=== PATIENT | female | born 1965 | race Caucasian/White ===

== ENCOUNTER → 2017-01-28 | Outpatient (CLI) | payer BC ==
--- NOTE | 2017-01-28 14:57 | REPMRS ---
Patient History The patient states she had a clinical breast exam in Patient is postmenopausal and had first child at age 39. No known family history of cancer. Taking unspecified hormones for 7 years. Digital Woman Screen Mammo: January 28, 2017 - Exam #: [id number] Bilateral CC and MLO view(s) were taken. Technologist: Amira Jenkins, Technologist Prior study comparison: January 23, 2016, digital woman screen mammo performed at [facility]. January 17, 2015, digital woman screen mammo performed at [facility]. January 14, 2014, digital woman screen mammo performed at [facility] to [facility]. FINDINGS: There are scattered fibroglandular densities. There has been no change in the appearance of the mammogram from the prior studies. There is a mild amount of scattered fibroglandular density which is fairly symmetric. There is no interval development of dominant mass, architectural distortion, or clustered microcalcification suggestive of malignancy. ASSESSMENT: BI-RADS/ACR category 1 mammogram. Negative. Recommendation Routine screening mammogram in 1 year (for women over age 40). This mammogram was interpreted with the aid of an FDA-approved computer-aided dectection system. Electronically Signed By: Josiah Akhtar MD 01/28/17 [id number]
== END ==
LOC: M WHC 14:03
PROVIDERS: ATTEND Nurse Practitioner Family
DX: Z12.31 Encounter for screening mammogram for malignant neoplasm of breast (principal)

== ENCOUNTER → 2017-11-28 | Outpatient (CLI) | payer BC | LOC: M WUC 09:21 | DX: R30.0 Dysuria (principal); M75.51 Bursitis of right shoulder | CPT/HCPCS: 87186 ==

== ENCOUNTER → 2018-02-03 | Outpatient (CLI) | payer OTHER | LOC: M WHC 14:17 | DX: Z12.31 Encounter for screening mammogram for malignant neoplasm of breast (principal); Z78.0 Asymptomatic menopausal state | CPT/HCPCS: 77067 ==

== ENCOUNTER → 2019-02-09 | Outpatient (CLI) | payer OTHER ==
--- NOTE | 2019-02-09 17:20 | REPMRS ---
Patient History The patient states she had a clinical breast exam in 02/17 Patient is postmenopausal and had first child at age 39. No known family history of cancer. Taking unspecified hormones for 8 years. Digital Woman Screen Mammo: February 09, 2019 - Exam #: [id number] Bilateral CC and MLO view(s) were taken. Technologist: Frances Bennett, Technologist Prior study comparison: February 03, 2018, digital woman screen mammo performed at [facility]. January 28, 2017, digital woman screen mammo performed at [facility]. FINDINGS: There are scattered fibroglandular densities. There has been no change in the appearance of the mammogram from the prior studies. There is a mild amount of residual fibroglandular tissue which is fairly symmetric. There is no interval development of dominant mass, architectural distortion, or clustered microcalcification suggestive of malignancy. Scattered lymph nodes are seen in the axillae. There are scattered, small, benign calcifications of doubtful clinical significance. 3-D tomosynthesis shows no additional findings. No significant changes when compared with prior studies. Assessment: BI-RADS/ACR category 2 mammogram. Benign Findings. Recommendation Routine screening mammogram in 1 year (for women over age 40). This mammogram was interpreted with the aid of an FDA-approved computer-aided dectection system. A. Negative x-ray reports should not delay biopsy if a dominant or clinically suspicious mass is present. B. Four to eight percent of cancers are not identified by mammography. C. Adenosis and dense breast may obscure an underlying neoplasm. Electronically Signed By: Jamar Gandhi MD 02/09/19 0481
== END ==
LOC: M WHC 13:16
PROVIDERS: ATTEND Nurse Practitioner Family
DX: Z12.31 Encounter for screening mammogram for malignant neoplasm of breast (principal)

== ENCOUNTER → 2019-09-21 | Outpatient (REF) | LOC: M LAB LCGH 15:11 | PROVIDERS: ATTEND Physician Assistant | DX: D48.5 Neoplasm of uncertain behavior of skin (principal) ==

== ENCOUNTER → 2020-08-29 | Outpatient (CLI) | payer OTHER ==
--- NOTE | 2020-09-07 09:06 | REP ---
BILATERAL SCREENING MAMMOGRAM WITH 3D TOMOSYNTHESIS DATE: 08/29/2020 HISTORY: There is no family history of breast cancer. [facility] lifetime risk of breast cancer 11.0. COMPARISON: Mammogram 02/09/2019, as well as other prior examinations. TECHNIQUE: Bilateral mammography performed in the MLO and CC projections with 3D tomosynthesis. FINDINGS: Mild scattered fibroglandular tissue is scattered bilaterally in a fairly symmetrical pattern. Volpara breast density is B. Subtle oval nodule in the left breast centrally behind the nipple in the mid-third of the breast is best seen on tomographic images. This measures about 13 mm in maximum diameter. It is fairly well-defined and low in density. No other mass is seen bilaterally. There are no suspicious clusters of microcalcifications. IMPRESSION: ACR 0 incomplete. There appears to be an oval, well-defined low-density nodule centrally in the left breast behind the nipple, in the mid-third of the breast. Recommend spot compression views and ultrasound to further evaluate. This mammogram was interpreted with the aid of an FDA-approved computer-aided detection system. The patient states her last clinical breast exam was 08/2020. Patient letter: 0. MTDD
== END ==
LOC: M WHC 10:13
PROVIDERS: ATTEND Nurse Practitioner Family
DX: R92.2 Inconclusive mammogram (principal); N63.20 Unspecified lump in the left breast, unspecified quadrant

== ENCOUNTER → 2020-09-01 | Outpatient (CLI) | payer OTHER ==
--- NOTE | 2020-09-07 09:06 | REP ---
DIAGNOSTIC MAMMOGRAM LEFT BREAST WITH LEFT BREAST ULTRASOUND COMPARISON: Mammogram 08/29/2020. Spot compression views of the left breast are performed and correlated with the recent mammogram of 08/29/2020. These confirm the presence of an oval relatively well defined nodule measuring 1.3 cm in diameter, approximately 5 cm behind the nipple centrally. The nodule is essentially at the level of the nipple. Real-time sonographic evaluation of the left breast performed in the region of the nodule, 5 cm behind the nipple. No cystic or solid nodule is seen sonographically. IMPRESSION: ACR 4 suspicious. Oval nodule 13 mm in diameter is relatively well-defined on initial tomographic images 08/29/2020 and on todays spot compression views. It is relatively low in density, but is new when compared to prior studies. There is no sonographic correlate and therefore, the nodule must be presumed to be solid. Recommend stereotactic biopsy with postprocedure mammogram. Patient letter: 4. OSCAR
== END ==
LOC: M WHC 09:16
PROVIDERS: ATTEND Nurse Practitioner Family
DX: Z12.31 Encounter for screening mammogram for malignant neoplasm of breast (principal)

== ENCOUNTER → 2020-10-18 | Outpatient (CLI) | payer OTHER ==
--- NOTE | 2020-10-18 12:26 | REP ---
INDICATION: R92.8 ABNORMAL MAMMOGRAM LT BREAST,STEREOTACTIC BX,POST BX. COMPARISON: 08/29/2020 and 09/01/2020. TECHNIQUE: Left breast mammographic images performed in the MLO, mL and CC projections. FINDINGS: A biopsy clip is seen at the site of the previously identified low-density in nodule in the left breast centrally. The clip is in good position. IMPRESSION: Biopsy clip identified at the site of the previously identified nodule centrally in the left breast. This has been biopsied stereotactically. Small amount of post biopsy hematoma is present. RECOMMENDATION: Clinical follow-up. <Electronically signed by Shin Staley > 10/18/20 [id number]
[2020-10-18 12:40] VITALS: BP 112/82
--- NOTE | 2020-10-18 18:04 | REP ---
INDICATION: R92.8 ABNORMAL MAMMOGRAM LT BREAST,STEREOTACTIC BX. COMPARISON: None. TECHNIQUE: This procedure is performed by Sabrina Victoria [facility], under the direct supervision of Dr. Staley. The risks and benefits of the procedure were explained to the patient and informed consent was obtained both verbally and written. Directly prior to the start of the procedure, a formal timeout was done in the procedure room. The cranial caudal approach was utilized on the prone table. The left breast nodule was localized using mammographic guidance. The skin was prepped and draped in a sterile fashion. Six ml of buffered lidocaine 1% lidocaine 10 mg/ml was used as a local anesthetic. FINDINGS: A 10 gauge suction assisted mammotome needle was inserted and advanced into the left breast nodule and 6 core biopsy samples were obtained. A marker clip was placed at the biopsy site. The patient tolerated the procedure well and there were no immediate complications. After the appropriate amount of monitored convalescence the patient was discharged from the department. IMPRESSION: Stereotactic biopsy of the left breast with a micro clip placement. <Electronically signed by Sabrina Victoria > 10/18/20 1204 <Electronically signed by Shin Staley > 10/18/20 1800
== END ==
LOC: M WHCPRO 09:10
PROVIDERS: ATTEND Surgery
DX: N60.82 Other benign mammary dysplasias of left breast (principal)

== ENCOUNTER → 2021-04-14 | Outpatient (CLI) | payer OTHER ==
--- NOTE | 2021-04-17 10:12 | REP ---
INDICATION: R92.8 ABN LEFT BREAST MAMMO/S/P BENIGN BX; DIAG L MAMMO/S/P LEFT BREAST BENIGN BX. COMPARISON: Comparison is made with post clip placement mammography from October 18, 2020, and prior mammography from August 29, 2020. Patient is status post benign stereotactic needle biopsy and clip placement. TECHNIQUE: Routine views of the left breast are obtained. 3D tomography is carried out. Magnified focal spot-compression images of the left breast are obtained. Targeted left breast sonography is performed. This mammogram was interpreted with the aid of an FDA-approved computer-aided detection system. FINDINGS: Breast parenchyma is predominantly fat replaced. A needle biopsy marker clip is again noted in the 12 o'clock position left breast. The hematoma noted on 10/18/2020 has decreased. No new mass, architectural distortion, microcalcification or worrisome skin changes seen. 3D tomography shows no additional abnormality. The Volpara volumetric breast density pattern is a. Targeted ultrasound: Targeted left breast sonographic imaging shows fairly homogeneous background echotexture. The recently placed needle biopsy marker clip is noted in the 1 o'clock position. No suspicious sonographic findings. IMPRESSION: BIRADS/ACR category 2 benign left breast mammographic and sonographic findings. This patient's Tyrer-Cuzick lifetime breast cancer risk assessment score is 11.0%. RECOMMENDATION: Annual bilateral screening mammography can be resumed.. The patient letter being requested is M2. <Electronically signed by Josiah Akhtar > 04/17/21 [id number]
== END ==
LOC: M WHC 15:22
PROVIDERS: ATTEND Surgery
DX: R92.8 Other abnormal and inconclusive findings on diagnostic imaging of breast (principal)
CPT/HCPCS: 76642; 77065; G0279

== ENCOUNTER → 2021-09-29 | Outpatient (CLI) | payer OTHER ==
--- NOTE | 2021-09-29 14:45 | REPMRS ---
Patient History The patient states she had a clinical breast exam in September 2021. No known family history of cancer. Benign stereotatic loc for ea lesion. of the left breast, October 18, 2020. Taking unspecified hormones for 8 years. Patient states no breast complaints today. Patient has signed MRS History Sheet. Digital Woman Screen Mammo: September 29, 2021 - Exam #: [id number] Bilateral CC and MLO view(s) were taken. Technologist: Shagufta Navarro, Technologist Prior study comparison: April 14, 2021, left breast diagnostic unilateral mammo performed at [facility]. September 01, 2020, left breast diagnostic unilateral mammo performed at [facility]. FINDINGS: There are scattered fibroglandular densities. Screening. Digital screening (2D) mammography was performed bilaterally in the CC and MLO projections. Additionally, breast tomosynthesis (3D mammography) was performed bilaterally in the CC and MLO projections. Todays exam was compared to the prior exam/exams. By history, the patient has no complaints of a palpable breast abnormality or other significant breast complaints. The Volpara volumetric breast density category is B, there are scattered areas of fibroglandular densities. The breasts are unchanged in size and shape. There are no scooby-soft tissue densities or spiculated masses. There is no internal architectural distortion. There are no suspicious scooby-calcific clusters. Skin thickening or nipple retraction is not present. IMPRESSION: BI-RADS Category 2- Benign Findings. There is no evidence of malignant alteration of the breasts. Followup examination recommended in one year. The lifetime Tyrer-Cuzick score is 10.8% This mammogram was read with the assistance of [employer],an FDA approved computer aided detection system for mammography. Negative x-ray reports should not delay surgical consultation if a dominant or clinically suspicious mass is present. Not all breast cancers can be identified by mammography. Therefore, we recommend that you continue to perform regular breast self-examination and physical examination and then promptly contact your physician of any concerns or changes. Adenosis and dense breasts may obscure an underlying neoplasm. No significant changes when compared with prior studies. Assessment: BI-RADS/ACR category 2 mammogram. Benign Findings. Recommendation Routine screening mammogram of both breasts in 1 year. Electronically Signed By: Gene Cool MD 09/29/21 [id number]
== END ==
LOC: M WHC 14:11
PROVIDERS: ATTEND Advanced Practice Midwife
DX: Z12.31 Encounter for screening mammogram for malignant neoplasm of breast (principal)

== ENCOUNTER → 2023-02-13 | Outpatient (CLI) | payer OTHER | LOC: M WHC 09:30 → MERGE 09:30 | PROVIDERS: ATTEND Advanced Practice Midwife | DX: Z53.9 Procedure and treatment not carried out, unspecified reason (principal) ==

== ENCOUNTER → 2023-02-13 | Outpatient (CLI) | payer OTHER | LOC: M WHC 10:31 | PROVIDERS: ATTEND Advanced Practice Midwife | DX: Z12.31 Encounter for screening mammogram for malignant neoplasm of breast (principal) ==

== ENCOUNTER → 2024-06-10 | Outpatient (REF) | payer BC | LOC: M SFHCWAGY 12:21 | PROVIDERS: ATTEND Nurse Practitioner Family | DX: N73.9 Female pelvic inflammatory disease, unspecified (principal) ==

== ENCOUNTER → 2024-06-24 | Outpatient (REF) | payer BC | LOC: M SFHCWAGY 13:35 | PROVIDERS: ATTEND Nurse Practitioner Family | DX: L29.2 Pruritus vulvae (principal) ==

== ENCOUNTER → 2024-07-30 | Outpatient (CLI) | payer BC, OTHER | LOC: M WHC 13:15 | PROVIDERS: ATTEND Advanced Practice Midwife | DX: Z12.31 Encounter for screening mammogram for malignant neoplasm of breast (principal) ==

== ENCOUNTER → 2024-12-28 | Outpatient (REF) | payer BC | LOC: M SFHCWAGY 16:54 | PROVIDERS: ATTEND Nurse Practitioner Family | DX: R30.0 Dysuria (principal) ==

== ENCOUNTER → 2025-04-16 | Outpatient (REF) | payer BC ==
[2025-04-16 18:35] LABS: CREATININE, URINE 65.7 MG/DL; MAU/CREAT RATIO 30.4 MCG/MG (0.0-30.0)
[2025-04-16 18:36] LABS: ALBUMIN 3.6 G/DL (3.2-5.2); ALKALINE PHOSPHATASE 117 U/L (35-104); ALT/SGPT 30 U/L (7.0-40); AST/SGOT 20 U/L (<34); BILIRUBIN,TOTAL 0.3 MG/DL (0.3-1.2); BLOOD UREA NITROGEN 17 MG/DL (9-23); CALCIUM LEVEL 9.3 MG/DL (8.5-10.1); CARBON DIOXIDE LEVEL 29 MMOL/L (20-31); CHLORIDE LEVEL 105 MMOL/L (98-107); CHOLESTEROL LEVEL 201 MG/DL (<200); CHOLESTEROL RISK RATIO 2.61 (<5); CREATININE FOR GFR 0.69 MG/DL (0.55-1.30); GLOMERULAR FILTRATION RATE > 90.0 (>51); GLUCOSE, FASTING 89 MG/DL (60-100); HDL CHOLESTEROL 76.9 MG/DL (>40); LDL CHOLESTEROL 85.3 MG/DL (<100); NON-HDL-C 124.1 MG/DL; POTASSIUM SERUM 3.9 MMOL/L (3.5-5.1); SODIUM LEVEL 143 MMOL/L (136-145); TOTAL PROTEIN 7.3 G/DL (5.7-8.2); TRIGLYCERIDES LEVEL 194 MG/DL (<150)
== END ==
LOC: M LABWUC 17:17
PROVIDERS: ATTEND Internal Medicine
DX: E78.5 Hyperlipidemia, unspecified (principal); R73.01 Impaired fasting glucose

== ENCOUNTER → 2025-08-13 | Outpatient (CLI) | payer BC | LOC: M WHC 09:21 | PROVIDERS: ATTEND Advanced Practice Midwife | DX: Z12.31 Encounter for screening mammogram for malignant neoplasm of breast (principal); Z13.820 Encounter for screening for osteoporosis; R92.313 Mammographic fatty tissue density, bilateral breasts ==

== ENCOUNTER → 2025-09-17 | Outpatient (CLI) | payer BC | LOC: M WUC 15:43 | PROVIDERS: ATTEND Physician Assistant | DX: M25.562 Pain in left knee (principal); M17.12 Unilateral primary osteoarthritis, left knee ==